=== PATIENT | male | born 1945 | race Caucasian/White ===

== ENCOUNTER 2019-01-07 15:00 | Inpatient (IN) | payer MEDICARE, OTHER ==
[~2019-01-07] VITALS: Ht 163.8 cm; Wt 75.7 kg
[2019-01-07] MEDS ORDERED: AMLODIPINE 10MG TABLET PO SCH (19:45)
[2019-01-07] MEDS ORDERED: ACETAMINOPHEN 325MG TABLET PO PRN (19:45)
[2019-01-07] MEDS ORDERED: ONDANSETRON HCL 4MG/2ML INJ IV PRN (19:45)
[2019-01-07] MEDS ORDERED: DOCUSATE SODIUM 100MG CAPSULE PO PRN (19:45)
[2019-01-07] MEDS ORDERED: NITROGLYCERIN 0.4MG TABLET SL SL PRN (19:45)
[2019-01-07] MEDS ORDERED: DIPHENHYDRAMINE 50MG/ML VIAL IV PRN (19:45)
[2019-01-07] MEDS ORDERED: IPRATROPIUM/ALBUTEROL 0.5-3(2.5)MG/3ML NEB INH PRN (19:45)
[2019-01-07] MEDS ORDERED: GUAIFENESIN 200MG/10ML SUGAR FREE UDC PO PRN (19:45)
[2019-01-07] MEDS ORDERED: DEXTROSE 50% WATER 50ML SYRINGE IV PRN (19:45)
[2019-01-07] MEDS ORDERED: MAGNESIUM/ALUMINUM HYDROXIDE/SIMETHICONE 30ML UDC PO PRN (19:45)
[2019-01-07] MEDS ORDERED: CLONIDINE 0.1MG TABLET PO PRN (19:45)
[2019-01-07 19:55] LABS: BASOPHILS % 1.8 % (0.0-2.0); EOSINOPHILS % 5.5 % (0.0-5.0); HEMATOCRIT. 35.8 % (42.0-52.0); HEMOGLOBIN. 11.6 g/dL (14.0-18.0); MEAN CORPUSCULAR HEMOGLOBIN 30.5 pg (28.0-32.0); MEAN CORPUSCULAR VOLUME 94.5 fL (80.0-94.0); MEAN PLATELET VOLUME 8.8 fl (7.4-10.4); MONOCYTES % 14.4 % (2.0-8.0); NEUTROPHILS % 56.3 % (40.0-76.0); PLATELET 231 x1000/uL (130-400); RED BLOOD CELL COUNT 3.79 mill/uL (4.7-6.1); RED CELL DISTRIBUTION WIDTH 16.1 % (11.6-14.6)
[2019-01-07 20:02] LABS: CHLORIDE 106 mEq/L (98-107)
[2019-01-07 20:10] LABS: PROTHROMBIN TIME 10.4 sec (9.1-11.1)
[2019-01-07 20:18] LABS: LDL CHOLESTEROL 87 mg/dL (5-100)
[2019-01-07 20:19] LABS: HDL CHOLESTEROL 39 mg/dL (40-59)
[2019-01-07] MEDS ORDERED: MORPHINE SULFATE 4 MG/ML CPJ (NOT FOR IM USE) IV PRN (20:30)
[2019-01-07] MEDS ORDERED: TRAMADOL 50MG TABLET PO PRN (20:30)
[2019-01-07] MEDS ORDERED: METOPROLOL TARTRATE 25MG TABLET PO SCH (21:00)
[2019-01-07] MEDS ORDERED: FAMOTIDINE 20MG TABLET PO SCH (21:00)
[2019-01-07] MEDS ORDERED: BLOOD SUGAR DIAGNOSTIC STRIP TEST SCH (21:00)
[2019-01-07] MEDS ORDERED: ZOLPIDEM TARTRATE 5MG TABLET PO PRN (21:00)
[2019-01-07] MEDS ORDERED: INSULIN LISPRO 100 UNITS/ML SUBCUT SCH (21:00)
[2019-01-07] MEDS ORDERED: HYDRALAZINE HCL 50MG TABLET PO SCH (22:00)
[2019-01-07 22:50] VITALS: BP 178/73
[2019-01-07 23:00] VITALS: BP 178/73
[2019-01-07] MEDS ORDERED: NIFE60TA64 MT (23:28)
[2019-01-07] MEDS ORDERED: LISI10TA5 MT (23:28)
[2019-01-07] MEDS ORDERED: PYRI100T2 MT (23:29)
[2019-01-08] VITALS: BP 185/85
[2019-01-08] MEDS ORDERED: FURO20TA4 MT (01:07)
[2019-01-08 04:00] VITALS: BP 168/66
[2019-01-08 08:00] VITALS: BP 151/63
[2019-01-08] MEDS ORDERED: ASPIRIN 325MG EC TABLET PO SCH (09:00)
[2019-01-08] MEDS ORDERED: FOLIC ACID/VITAMIN B COMP W-C TABLET PO SCH (09:00)
[2019-01-08] MEDS ORDERED: SEVELAMER CARBONATE 800 MG TABLET PO SCH (09:00)
[2019-01-08] MEDS: ENOXAPARIN 30MG/0.3ML SYR SUBCUT SCH (09:00)
[2019-01-08] MEDS: NIFEDIPINE XL 60MG TAB PO SCH ×2 (09:01→20:49)
[2019-01-08 12:00] VITALS: BP 144/61
[2019-01-08 16:00] VITALS: BP 165/62
[2019-01-08 20:00] VITALS: BP 136/59
[2019-01-08] MEDS ORDERED: LISINOPRIL 10MG TABLET PO SCH (21:00)
[2019-01-08] MEDS ORDERED: LISINOPRIL 20MG TABLET PO SCH (21:00)
[2019-01-09] VITALS: BP 132/48
[2019-01-09 04:00] VITALS: BP 110/44
[2019-01-09 08:00] VITALS: BP 139/67
[2019-01-09 08:21] LABS: BASOPHILS % 1.7 % (0.0-2.0); HEMATOCRIT. 33.9 % (42.0-52.0); HEMOGLOBIN. 11.3 g/dL (14.0-18.0); LYMPHOCYTES % 22.8 % (20.0-50.0); MEAN CORPUSCULAR HEMOGLOBIN 31.2 pg (28.0-32.0); MEAN CORPUSCULAR VOLUME 93.6 fL (80.0-94.0); MEAN PLATELET VOLUME 8.9 fl (7.4-10.4); MONOCYTES % 13.3 % (2.0-8.0); NEUTROPHILS % 57.2 % (40.0-76.0); PLATELET 192 x1000/uL (130-400); RED BLOOD CELL COUNT 3.62 mill/uL (4.7-6.1); RED CELL DISTRIBUTION WIDTH 15.6 % (11.6-14.6)
[2019-01-09 08:59] LABS: PHOSPHORUS 4.4 mg/dL (2.5-4.9)
[2019-01-09] MEDS: ENOXAPARIN 30MG/0.3ML SYR SUBCUT SCH (09:00)
[2019-01-09 09:03] LABS: CREATINE KINASE MB FRACTION 2.9 ng/mL (0.5-3.6)
[2019-01-09 09:55] VITALS: BP 139/67
== END 2019-01-09 11:25 | disposition home or self-care (01) | DRG 291 ==
LOC: ER 15:00 → EDBEDREQ 19:05 → 6WST 19:20 → EDBEDREQ 19:30 → SUPCPDRO 20:10 → ENRESERV 21:43
PROVIDERS: ADMIT Internal Medicine; ATTEND Internal Medicine
PROC: 5A1D70Z Performance of Urinary Filtration, Intermittent, Less than 6 Hours Per Day (ICD-10-PCS; principal; 2019-01-08)
DX: I13.2 Hypertensive heart and chronic kidney disease with heart failure and with stage 5 chronic kidney disease, or end stage renal disease (principal); I50.33 Acute on chronic diastolic (congestive) heart failure; N18.6 End stage renal disease; E44.1 Mild protein-calorie malnutrition; D63.1 Anemia in chronic kidney disease; E83.51 Hypocalcemia; Z91.15 Patient's noncompliance with renal dialysis; E11.22 Type 2 diabetes mellitus with diabetic chronic kidney disease; Z79.4 Long term (current) use of insulin; Z99.2 Dependence on renal dialysis; Z82.5 Family history of asthma and other chronic lower respiratory diseases; Z68.28 Body mass index [BMI] 28.0-28.9, adult
CPT/HCPCS: 36415; 71045; 80048; 80061; 82550; 82553; 82962; 83036; 84100; 84484; 93005; 93970; 99285